=== PATIENT | female | born 1975 | race Caucasian/White ===

== ENCOUNTER 2017-09-15 16:00 | Inpatient (IN) | END 2017-09-18 11:13 | disposition home or self-care (01) | DRG 742 ==

== ENCOUNTER 2019-04-17 12:12 | Inpatient (IN) | payer BC ==
[~2019-04-17] VITALS: Ht 162.6 cm; Wt 109.2 kg
[~2019-04-17 12:12] MED LIST: ACET500T76 PO; DOCU-216 PO; FER325 PO; LEVO125T7 PO
[2019-04-17] MEDS ORDERED: SOD CHLORIDE 0.9% 0 ML IV ONE (14:33)
[2019-04-17] MEDS ORDERED: ACETAMINOPHEN 325 MG TAB PO PRN ×2 (15:00→15:30)
[2019-04-17] MEDS ORDERED: ONDANSETRON 4 MG INJ IV PRN ×2 (15:00→15:30)
[2019-04-17] MEDS ORDERED: morphine 2 MG INJ IV PRN (15:30)
[2019-04-17] MEDS ORDERED: MAGNESIUM HYDROXIDE 30ML CUP PO PRN (15:30)
[2019-04-17] MEDS ORDERED: HYDROCODONE/APAP (5/325) TAB PO PRN (15:30)
[2019-04-17] MEDS ORDERED: NACL 0.9% 3 ML SYG IV SCH (15:30)
[2019-04-18 01:10] VITALS: BP 125/61; PULSE 66; RESP 20; Ht 162.6 cm; Wt 109.2 kg
[2019-04-18 04:00] VITALS: BP 136/67; PULSE 64; RESP 18
[2019-04-18] MEDS: LEVOTHYROXINE 125 MCG TAB PO SCH (05:37)
[2019-04-18] MEDS: PANTOPRAZOLE (EC) 40 MG TAB PO SCH (05:37)
[2019-04-18 07:17] VITALS: BP 121/57; PULSE 65; RESP 19
[2019-04-18 11:18] VITALS: BP 125/67; PULSE 67; RESP 19
[2019-04-18] MEDS: SOD FERRIC GLUC COMPLX 125 MG in SOD CHLORIDE 0.9% 100 ML IVPB SCH (14:54)
[2019-04-18 15:13] VITALS: BP 121/66; PULSE 61; RESP 18
[2019-04-18 19:48] VITALS: BP 110/58; PULSE 65; RESP 18
[2019-04-19] VITALS (7 sets, daily range): BP systolic 108–146; BP diastolic 56–75; PULSE 56–73; RESP 18
[2019-04-19] MEDS: PANTOPRAZOLE (EC) 40 MG TAB PO SCH (06:14)
[2019-04-19] MEDS: LEVOTHYROXINE 125 MCG TAB PO SCH (06:14)
[2019-04-19] MEDS: SOD FERRIC GLUC COMPLX 125 MG in SOD CHLORIDE 0.9% 100 ML IVPB SCH (12:48)
[2019-04-20 04:00] VITALS: BP 116/54; PULSE 76; RESP 20
[2019-04-20] MEDS: LEVOTHYROXINE 125 MCG TAB PO SCH (06:09)
[2019-04-20] MEDS: PANTOPRAZOLE (EC) 40 MG TAB PO SCH (06:09)
[2019-04-20 07:22] VITALS: BP 119/55; PULSE 64; RESP 16
[2019-04-20 11:25] VITALS: BP 124/62; PULSE 70; RESP 18
== END 2019-04-20 14:25 | disposition home or self-care (01) | DRG 812 ==
LOC: E/R 12:12 → TEL 14:48 → CANRESERV 17:54 → EDBEDREQSVC 18:31
PROVIDERS: ADMIT Internal Medicine; ATTEND Internal Medicine
PROC: 30233N1 Transfusion of Nonautologous Red Blood Cells into Peripheral Vein, Percutaneous Approach (ICD-10-PCS; principal; 2019-04-17)
DX: D50.0 Iron deficiency anemia secondary to blood loss (chronic) (principal); Z68.41 Body mass index [BMI] 40.0-44.9, adult; N93.9 Abnormal uterine and vaginal bleeding, unspecified; D25.9 Leiomyoma of uterus, unspecified; E66.9 Obesity, unspecified; E03.9 Hypothyroidism, unspecified; N80.0 Endometriosis of uterus; R06.02 Shortness of breath
CPT/HCPCS: 36415; 36430; 72196; 74176; 76856; 80048; 80053; 80061; 81025; 83036; 83540; 83735; 84100; 84436; 84443; 84479; 84484; 85025; 85610; 85730; 86850; 86900; 86901; 86920; 93005; J2916; J7040; P9016

== ENCOUNTER 2019-06-30 12:54 | Inpatient (IN) | payer BC ==
[~2019-06-30] VITALS: Ht 157.5 cm; Wt 104.5 kg
[~2019-06-30 12:54] MED LIST changes: -ACET500T76 PO; +COLC0.6C PO; -DOCU-216 PO; +IBUP-1541 PO; +IBUP-1982 PO; +IBUP800T48 PO; +METO-448 PO; +PANT40TA4 PO
[2019-06-30 13:08] VITALS: Ht 157.5 cm; Wt 104.5 kg
[2019-06-30] MEDS ORDERED: ASPIRIN 325 MG TAB PO STA (15:57)
[2019-06-30] MEDS ORDERED: ONDANSETRON 4 MG INJ IV PRN ×2 (18:30→19:00)
[2019-06-30] MEDS ORDERED: ACETAMINOPHEN 325 MG TAB PO PRN ×2 (18:30→19:00)
[2019-06-30] MEDS ORDERED: SOD CHLORIDE 0.9% 1,000 ML IV SCH (18:33)
[2019-06-30] MEDS ORDERED: HYDROCODONE/APAP (5/325) TAB PO PRN (19:00)
[2019-06-30] MEDS ORDERED: HEPARIN 1000 UNITS/ML 10 ML INJ IV PRN (19:00)
[2019-06-30] MEDS ORDERED: HEPARIN 1000 UNITS/ML 10 ML INJ IV ONE (19:00)
[2019-06-30] MEDS ORDERED: morphine 2 MG INJ IV PRN (19:00)
[2019-06-30] MEDS ORDERED: NACL 0.9% 3 ML SYG IV SCH (19:00)
[2019-06-30] MEDS ORDERED: NITROGLYCERIN (SL) 0.4 MG TAB SL PRN (19:00)
[2019-06-30] MEDS ORDERED: LORAZEPAM 0.5 MG TAB PO PRN (19:00)
[2019-06-30] MEDS ORDERED: METOPROLOL 5 MG INJ IV PRN (19:30)
[2019-06-30] MEDS ORDERED: ATORVASTATIN 80 MG TAB PO SCH (21:00)
[2019-06-30] MEDS: PANTOPRAZOLE 40 MG INJ IV SCH (21:07)
[2019-06-30] MEDS: HEPARIN 25000 UNITS/250 ML 250 ML IV SCH (21:09)
[2019-06-30 22:05] VITALS: BP 127/68; PULSE 72; RESP 20
[2019-06-30] MEDS: METOPROLOL 50 MG TAB PO SCH (22:23)
[2019-07-01] VITALS: BP 137/64; PULSE 55; RESP 20
[2019-07-01 04:00] VITALS: BP 115/65; PULSE 62; RESP 20
[2019-07-01] MEDS: LEVOTHYROXINE 125 MCG TAB PO SCH (05:21)
[2019-07-01] MEDS: PANTOPRAZOLE 40 MG INJ IV SCH (05:21)
[2019-07-01 07:16] VITALS: BP 108/52; PULSE 59; RESP 18
[2019-07-01] MEDS: METOPROLOL 50 MG TAB PO SCH ×2 (08:08→09:59)
[2019-07-01] MEDS ORDERED: ASPIRIN 81 MG TAB PO SCH (09:00)
[2019-07-01] MEDS ORDERED: SOD CHLORIDE 0.9% 100 ML ONE (10:04)
[2019-07-01] MEDS ORDERED: IOHEXOL 100 ML ONE (10:04)
[2019-07-01] MEDS ORDERED: METOPROLOL 5 MG INJ ONE (10:30)
[2019-07-01] MEDS ORDERED: NITROGLYCERIN AEROSOL (4.9 GM) ONE (10:30)
[2019-07-01] MEDS: HEPARIN 25000 UNITS/250 ML 250 ML IV SCH (11:08)
[2019-07-01 11:21] VITALS: BP 107/54; PULSE 52; RESP 18
[2019-07-01] MEDS: IBUPROFEN 800 MG TAB PO SCH ×2 (14:43→20:49)
[2019-07-01] MEDS: COLCHICINE 0.6 MG CAP PO SCH ×2 (14:43→20:49)
[2019-07-01 15:16] VITALS: BP 110/59; PULSE 52; RESP 16
[2019-07-01 19:45] VITALS: BP 113/68; PULSE 58; RESP 18
[2019-07-02 00:16] VITALS: BP 121/64; PULSE 60; RESP 18
[2019-07-02 04:52] VITALS: BP 104/55; PULSE 67; RESP 18
[2019-07-02] MEDS: LEVOTHYROXINE 125 MCG TAB PO SCH (05:41)
[2019-07-02] MEDS: PANTOPRAZOLE (EC) 40 MG TAB PO SCH (05:41)
[2019-07-02 07:15] VITALS: BP 114/58; PULSE 59; RESP 18
[2019-07-02] MEDS: COLCHICINE 0.6 MG CAP PO SCH ×2 (08:48→20:37)
[2019-07-02] MEDS: IBUPROFEN 800 MG TAB PO SCH ×3 (08:48→20:37)
[2019-07-02] MEDS ORDERED: LABETALOL HCL 20MG INJ IV PRN (11:00)
[2019-07-02 11:21] VITALS: BP 169/92; PULSE 63; RESP 18
[2019-07-02] MEDS ORDERED: hydrALAzine 20 MG INJ IV PRN (13:00)
[2019-07-02 15:25] VITALS: BP 119/57; PULSE 59; RESP 18
[2019-07-02] MEDS ORDERED: IOHEXOL 100 ML ONE (16:56)
[2019-07-02] MEDS ORDERED: SOD CHLORIDE 0.9% 100 ML ONE (16:56)
[2019-07-02 19:47] VITALS: BP 127/63; PULSE 56; RESP 18
[2019-07-02] MEDS: METOPROLOL 25 MG TAB PO SCH (20:39)
[2019-07-03] VITALS: BP 129/69; PULSE 59; RESP 18
[2019-07-03 04:31] VITALS: BP 131/73; PULSE 60; RESP 18
[2019-07-03] MEDS: LEVOTHYROXINE 125 MCG TAB PO SCH (05:22)
[2019-07-03] MEDS: PANTOPRAZOLE (EC) 40 MG TAB PO SCH (05:22)
[2019-07-03 07:43] VITALS: BP 100/48; PULSE 64; RESP 18
[2019-07-03] MEDS: COLCHICINE 0.6 MG CAP PO SCH (08:44)
[2019-07-03] MEDS: IBUPROFEN 800 MG TAB PO SCH (08:45)
[2019-07-03] MEDS: METOPROLOL 25 MG TAB PO SCH (08:48)
[2019-07-03 11:44] VITALS: BP 128/60; RESP 18
== END 2019-07-03 12:16 | disposition home or self-care (01) | DRG 281 ==
LOC: E/R 12:54 → TEL 18:26
PROVIDERS: ADMIT Internal Medicine; ATTEND Internal Medicine
DX: I21.4 Non-ST elevation (NSTEMI) myocardial infarction (principal); Z68.41 Body mass index [BMI] 40.0-44.9, adult; D64.9 Anemia, unspecified; D25.9 Leiomyoma of uterus, unspecified; E03.9 Hypothyroidism, unspecified; E66.9 Obesity, unspecified; I51.4 Myocarditis, unspecified
CPT/HCPCS: 36415; 71045; 71275; 75574; 80048; 80053; 80061; 82550; 82553; 82962; 83036; 83735; 83880; 84100; 84443; 84484; 85025; 85610; 85651; 85730; 86140; 93005; 93306; C9113; J1644; J2270; J7030; Q9967